=== PATIENT | female | born 2000 | race African-American/Black ===

== ENCOUNTER 2024-09-12 14:53 | Emergency (ER) | payer MEDICAID ==
[~2024-09-12] VITALS: Ht 165.1 cm; Wt 70.0 kg
[2024-09-12 14:54] VITALS: BP 145/57; PULSE 90; RESP 18; TEMP 98; O2SAT 100
[2024-09-12] MEDS ORDERED: CYCLOBENZAPRINE 10MG TABLET PO ONE (16:15)
[2024-09-12] MEDS: NAPROXEN 250MG TABLET PO ONE (16:53)
[2024-09-12] MEDS: CYCLOBENZAPRINE 10MG TABLET PO NR (16:54)
[2024-09-12] MEDS ORDERED: NAPR-681 MT (17:01)
[2024-09-12] MEDS ORDERED: CYCL25PO15 MT (17:01)
== END 2024-09-12 18:14 | disposition home or self-care (01) ==
LOC: ER 14:53
DX: S39.012A Strain of muscle, fascia and tendon of lower back, initial encounter (principal); Z88.6 Allergy status to analgesic agent; X58.XXXA Exposure to other specified factors, initial encounter; Y93.89 Activity, other specified; Y92.89 Other specified places as the place of occurrence of the external cause; Y99.8 Other external cause status
CPT/HCPCS: 99283